=== PATIENT | male | born 1945 | race Caucasian/White ===

== ENCOUNTER 2017-08-14 14:26 | Outpatient (CLI) | payer MEDICARE, BC ==
--- NOTE | 2017-08-14 17:27 | RAD ---
FOUR VIEWS LUMBAR SPINE: History: Lumbar radiculopathy. Right lower back pain. Comparison: None. FINDINGS: Four views lumbar spine. There are five lumbar type vertebral bodies. Vertebral body height is maintained. No evidence of a l umbar spine fracture. There is diffuse bone demineralization. In the neutral position, no significan t spondylolisthesis. Laminectomy defect at L4 is noted. Atherosclerosis of the aorta and iliac arter ies is identified. IMPRESSION: Degenerative changes without significant spondylolisthesis. POS: KELLY
--- NOTE | 2017-08-14 20:30 | MRI ---
MRI LUMBAR SPINE WITH AND WITHOUT CONTRAST: DATE: 08-14-17 HISTORY: 72-year-old male with chronic low back pain and right lumbar radiculopathy. M54.16 COMPARISON: 06-17-16 TECHNIQUE: Multiple sequences obtained in axial and sagittal planes, pre and post IV injection of gadolinium-ba sed contrast agent: 20 ml of MultiHance FINDINGS: There is an approximately 1.5 cm cyst at the right renal posterior upper pole parenchyma, unchanged. Vertebral body heights are maintained. Alignment is normal. Large hemangioma of bone occupying T12 vertebral body, and a moderate sized one at the left side of L4 vertebral body. A large region of ir regularly-shaped, heterogeneously T2 hypointense and mildly T1 hypointense marrow signal abnormality throughout much of L1 vertebral body, unchanged. No severe disc space narrowing at any level. No ma nery spondylolisthesis. T12-L1: No significant additional findings. L1-2: Conus medullaris terminates at mid to lower L1 level. No central stenosis and no high grade ne ural foraminal stenosis. L2-3: No central stenosis and no high grade neural foraminal stenosis. L3-4: Diffuse disc bulge. Moderate degenerative facet hypertrophy and moderate ligamentum flavum thi ckening. Mild to moderate central canal stenosis. Moderate thecal sac stenosis. Moderate right neura l foraminal stenosis. Moderate to severe left neural foraminal stenosis. No interval change. L4-5: New midline decompressive laminectomy at this level with resection of bilaterally previously t hickened ligamentum flavum, and interval removal of the previously demonstrated moderately large rig ht synovial cyst within the spinal canal. Spinal canal and thecal sac caliber are normal currently. Bilaterally moderate to severe degenerative facet changes. A new finding of bilateral facet joint ef fusions. Severe bilateral neural foraminal stenosis. There is mild bone marrow edema involving the b ilateral facet complexes, and in the adjacent bilateral L5 pedicles. Enhancing post-surgical scar ti ssue involving approximately 270 degrees of the extradural space surrounding the thecal sac (posteri or and lateral). Enhancing scar tissue at the laminectomy defect and posterior to it in the posterio r perivertebral space. L5-S1: Bilaterally moderate degenerative facet changes. Mild to moderate right neural foraminal sten osis. Moderate left neural foraminal stenosis. No central stenosis. No interval change. IMPRESSION: 1. Since the previous MRI of 06-17-16, there has been interval midline decompressive laminectomy at L 4-5, with interval resection of the moderately large synovial cyst in the spinal canal arising from the right facet complex, and interval relief of the previously demonstrated severe thecal sac stenos is. 2. Severe bilateral neural foraminal stenosis at L4-5 remains. 3. New bilateral L4-5 facet joint effusions and marrow edema of posterior elements at that leve, pre sumably due to biomechanical stress. 4. Moderate central spinal canal stenosis at L3-4 is unchanged, with bilateral neural foraminal sten osis. ARI Mercado POS: KELLY
== END 2017-08-14 14:27 | disposition home or self-care (01) ==
LOC: TBSIIMAG 14:26
PROVIDERS: ATTEND Surgery
DX: M47.26 Other spondylosis with radiculopathy, lumbar region (principal)
CPT/HCPCS: 72120; 72158

== ENCOUNTER 2019-02-11 06:01 | Day surgery (SDC) | payer MEDICARE, BC ==
[2019-02-06 09:45] VITALS: BMI 31.6
[2019-02-06 10:53] LABS: Anion Gap 13 mmol/L (10-20); BUN (Urea Nitrogen) 27 mg/dL (8.4-25.7); Calc. Creatinine Clearance 76 mL/min (70-130); Calcium 9.6 mg/dL (7.8-10.44); Carbon Dioxide 23 mmol/L (23-31); Chloride 109 mmol/L (98-107); Estimated GFR-MDRD 54; Glucose 99 mg/dL (83-110); Potassium 4.9 mmol/L (3.5-5.1); Sodium 140 mmol/L (136-145)
[2019-02-11] MEDS ORDERED: Nitroglycerin 100MG/250ML BOT 250 ML ONE (07:19)
[2019-02-11] MEDS ORDERED: Heparin 10,000 UNITS/1 ML VIAL ONE (07:19)
[2019-02-11] MEDS ORDERED: Midazolam HCl 2 mg/2 ml Vial ONE (08:19)
[2019-02-11] MEDS ORDERED: Iopamidol 370 76% 100 ML VIAL ONE (12:01)
--- NOTE | 2019-02-11 15:50 | DIS ---
DATE OF ADMISSION: 02/11/2019 DATE OF DISCHARGE: 02/11/2019 INDICATION FOR PROCEDURE: A 73-year-old patient with history of coronary artery disease status post bypass surgery, who underwent a cardiac catheterization previously done on 01/31/2019 and at that time, he had cardiac catheterization and visualization of the poarch coronary arteries and the bypass grafts. He was found to have severe ostial stenosis of the left circumflex. The remaining saphenous vein grafts appeared to be patent. There was no saphenous vein graft previously to the left circumflex. He was advised to undergo angioplasty and probable stent placement to the ostium of the left circumflex extending back into the left main. The left anterior descending artery was completely occluded in the very proximal area. ADMITTING DIAGNOSES: Coronary artery disease, hypertension, dyslipidemia, peripheral vascular disease, gastroesophageal reflux disease, prostate cancer which has been treated. DISCHARGE DIAGNOSES: Coronary artery disease, hypertension, dyslipidemia, peripheral vascular disease, gastroesophageal reflux disease, prostate cancer which has been treated. PROCEDURE IN HOSPITAL: He was taken to the cardiac cath laboratory, where he underwent the procedure today. He was implanted with 2.5 x 12 mm synergy stent and also 2.5 x 8 mm synergy stent overlapping the original stent more distally. He tolerated the procedure well. At the beginning of the procedure, the ostium was about 90% occluded and more distally is likely 60% stenosis. After the first stent was placed, it appeared to be more significantly stenosed and the second stent was placed. At the end of the procedure, there was no residual stenosis. He tolerated the procedure well. As noted above. His followup will be with me in 2 to 4 weeks in the office. DISCHARGE MEDICATIONS: Same as his home medications or prior medications except he will be started on Brilinta 90 mg b.i.d. His other medications include: 1. Atorvastatin 80 mg a day. 2. Tramadol 50 mg tablets as needed. 3. Melatonin 10 mg q.p.m. 4. Nexium 40 mg daily. 5. Fiber powder 500 mg daily. 6. Potassium gluconate ER 595 mg tablets once a day. 7. Aspirin 81 mg a day. 8. Tylenol Extra Strength 500 mg p.r.n. as needed. 9. Lisinopril 5 mg daily. 10. Gabapentin 300 mg t.i.d. 11. Metoprolol 25 mg b.i.d. HOSPITAL COURSE: A very pleasant gentleman, 73-year-old as noted above with severe coronary artery disease, underwent bypass surgery several years ago, was found to have abnormal stress test. He complained of chest pain on exertion, which appeared to be unstable angina. It has become worse. He was advised to undergo a cardiac catheterization, which was done on 01/31 and he was noted to have ostial stenosis of the left circumflex, which was rather considered severe. He did not have a previous bypass on this vessel. He was advised to undergo angioplasty and stent placement. This was arranged for today. He underwent the procedure without difficulties or complications or wound to the right groin. If he has no complications and his vital signs remain stable, he will be discharged to home in the next 6 hours after the sheath has been removed. He tolerated the procedure well and I will see him back in the office. Job ID: [id number] MTDD
[2019-02-11] MEDS ORDERED: traMADol HCl 50 MG TAB ONE (17:37)
== END 2019-02-11 22:50 | disposition home or self-care (01) ==
LOC: CCL 06:01
PROVIDERS: ATTEND Internal Medicine Cardiovascular Disease
PROC: 027034Z Dilation of Coronary Artery, One Artery with Drug-eluting Intraluminal Device, Percutaneous Approach (ICD-10-PCS; principal; 2019-02-11)
PROC: 4A023N7 Measurement of Cardiac Sampling and Pressure, Left Heart, Percutaneous Approach (ICD-10-PCS; 2019-02-11)
PROC: B2111ZZ Fluoroscopy of Multiple Coronary Arteries using Low Osmolar Contrast (ICD-10-PCS; 2019-02-11)
DX: I25.10 Atherosclerotic heart disease of native coronary artery without angina pectoris (principal); I10 Essential (primary) hypertension; E78.5 Hyperlipidemia, unspecified; I73.9 Peripheral vascular disease, unspecified; K21.9 Gastro-esophageal reflux disease without esophagitis; Z85.46 Personal history of malignant neoplasm of prostate; Z79.82 Long term (current) use of aspirin; Z79.899 Other long term (current) drug therapy; Z95.1 Presence of aortocoronary bypass graft
CPT/HCPCS: 80048; 85347; 92928; 99153; C1769; C1874; C1887; C9600; J1642; J1644; J2250; Q9967

== ENCOUNTER 2021-07-19 14:11 | Outpatient (CLI) | payer MEDICARE ==
[~2021-07-19 14:11] MED LIST: Iopamidol 370 76% 100 ML VIAL ONE
== END 2021-07-19 14:12 | disposition home or self-care (01) ==
LOC: BICCT 14:11
PROVIDERS: ATTEND Internal Medicine Cardiovascular Disease
DX: I65.22 Occlusion and stenosis of left carotid artery (principal); I65.02 Occlusion and stenosis of left vertebral artery
CPT/HCPCS: 70498; 82565

== ENCOUNTER 2021-08-06 10:00 | Inpatient (IN) | payer MEDICARE ==
[2021-08-09 13:19] VITALS: BMI 32.5
[2021-08-10] MEDS ORDERED: Heparin 5,000 UNITS/ML VIAL ONE (06:25)
[2021-08-10] MEDS ORDERED: Protamine Sulfate 50 MG/5 ML VIAL ONE (06:25)
[2021-08-10] MEDS ORDERED: EPINEPHrine 1 MG/ML AMP ONE (06:45)
[2021-08-10] MEDS ORDERED: Bupivacaine PF 0.5% 30 ML VIAL ONE (06:45)
[2021-08-10] MEDS ORDERED: Dexamethasone 4 mg/ml Vial ONE (06:45)
[2021-08-10] MEDS ORDERED: Midazolam HCl 2 mg/2 ml Vial ONE (06:46)
[2021-08-10] MEDS ORDERED: Fentanyl 100 MCG/2 ML VIAL ONE (06:46)
[2021-08-10] MEDS ORDERED: ceFAZolin 2 GM/DEX 5% 100 ML BAG ONE (07:00)
[2021-08-10] MEDS ORDERED: Dexamethasone 20 MG/5 ML VIAL ONE (07:27)
[2021-08-10] MEDS ORDERED: Ondansetron PF 4 MG/2 ML Vial ONE (07:27)
[2021-08-10] MEDS ORDERED: PROPOFOL 200 MG/20 ML VIAL ONE (07:27)
[2021-08-10] MEDS ORDERED: PHENYLEPHRINE-NS 100 MCG/ML 10 ML SYRINGE ONE (07:27)
[2021-08-10] MEDS ORDERED: Glycopyrrolate 0.2 MG/ML 5 ML SYRINGE ONE (07:27)
[2021-08-10] MEDS ORDERED: Rocuronium Bromide 10 MG/ML (10ML VIAL) ONE (07:27)
[2021-08-10] MEDS ORDERED: hydrALAZINE 20 MG/ML VIAL SLOW IVP PRN (08:47)
[2021-08-10] MEDS ORDERED: Fentanyl 100 MCG/2 ML VIAL SLOW IVP PRN (08:47)
[2021-08-10] MEDS ORDERED: traMADol HCl 50 MG TAB PO PRN (08:47)
[2021-08-10] MEDS ORDERED: Acetaminophen 325 MG TAB PO PRN (08:47)
[2021-08-10] MEDS ORDERED: Ondansetron PF 4 MG/2 ML Vial IVP PRN (08:47)
[2021-08-10] MEDS ORDERED: Phenylephrine 40 MG in Sodium Chloride 0.9% 250 ML 250 ML IVPB PRN (08:47)
[2021-08-10] MEDS ORDERED: Nitroglycerin 50 MG/250 ML BOT 250 ML IVPB PRN (08:47)
[2021-08-10] MEDS ORDERED: Melatonin 3 MG TAB PO PRN (09:03)
[2021-08-10] MEDS ORDERED: ePHEDrine Sulfate 50 MG/10 ML VIAL ONE (09:31)
[2021-08-10] MEDS ORDERED: Non-Formulary Medication 1 EACH PO PRN (09:37)
[2021-08-10] MEDS ORDERED: Ondansetron HCl/PF 4 MG/2 ML Vial IVP PRN (09:45)
[2021-08-10] MEDS ORDERED: ePHEDrine Sulfate 50 MG/10 ML VIAL SLOW IVP SCH (09:45)
[2021-08-10] MEDS ORDERED: Promethazine HCl 25 MG/ML VIAL IM/IV PRN (09:45)
[2021-08-10] MEDS ORDERED: Acetaminophen 325 MG TAB ONE ×2 (09:57)
[2021-08-10] MEDS: Sodium Chloride 0.9% 1,000 ML IV SCH ×2 (10:00→16:57)
[2021-08-10] MEDS: Metoprolol Tartrate 25 MG TAB PO SCH ×2 (13:14→23:43)
[2021-08-10] MEDS: Gabapentin 300 MG CAP PO SCH ×3 (13:14→20:27)
[2021-08-10] MEDS ORDERED: FLU VACC QS2021-22(65YR UP)/PF 240 MCG/0.7 ML SYRINGE IM ONE (15:00)
[2021-08-10] MEDS: ceFAZolin Sodium/D5W 2 GM in Premix Bag 1 BAG IVPB SCH ×2 (16:57→23:42)
[2021-08-11 06:08] VITALS: TEMP 98.2
[2021-08-11] MEDS: Gabapentin 300 MG CAP PO SCH (07:23)
[2021-08-11 07:24] VITALS: BP 129/101
[2021-08-11] MEDS: Metoprolol Tartrate 25 MG TAB PO SCH (07:24)
[2021-08-11] MEDS: Sodium Chloride 0.9% 1,000 ML IV SCH (07:25)
[2021-08-11] MEDS: ceFAZolin Sodium/D5W 2 GM in Premix Bag 1 BAG IVPB SCH (07:39)
[2021-08-11] MEDS ORDERED: Aspirin 81 mg Enteric Coated Tablet PO SCH (09:00)
[2021-08-11] MEDS ORDERED: Clopidogrel Bisulfate 75 MG TAB PO SCH (09:00)
[2021-08-11] MEDS ORDERED: Atorvastatin Calcium 40 MG TAB PO SCH (09:00)
[2021-08-11] MEDS ORDERED: Potassium Chloride 8 MEQ TAB PO SCH (09:00)
[2021-08-11] MEDS ORDERED: Ezetimibe 10 MG TAB PO SCH (09:00)
[2021-08-11] MEDS ORDERED: Lisinopril 20 MG TAB PO SCH (09:00)
[2021-08-11] MEDS ORDERED: Amlodipine 5 MG TAB PO SCH (09:00)
== END 2021-08-11 10:26 | disposition home or self-care (01) | DRG 36 ==
LOC: SURG A 08-10 06:10 → EDSTATUS 08-10 10:00 → IMCU/EMU 08-10 12:35
PROVIDERS: ADMIT Thoracic Surgery (Cardiothoracic Vascular Surgery); ATTEND Thoracic Surgery (Cardiothoracic Vascular Surgery)
PROC: 037L3DZ Dilation of Left Internal Carotid Artery with Intraluminal Device, Percutaneous Approach (ICD-10-PCS; principal; 2021-08-10)
PROC: B347ZZ3 Ultrasonography of Left Internal Carotid Artery, Intravascular (ICD-10-PCS; 2021-08-10)
DX: I65.22 Occlusion and stenosis of left carotid artery (principal); I10 Essential (primary) hypertension; E78.5 Hyperlipidemia, unspecified; I25.10 Atherosclerotic heart disease of native coronary artery without angina pectoris; M19.90 Unspecified osteoarthritis, unspecified site; I25.2 Old myocardial infarction; Z95.1 Presence of aortocoronary bypass graft; Z95.5 Presence of coronary angioplasty implant and graft; Z85.46 Personal history of malignant neoplasm of prostate; Z90.79 Acquired absence of other genital organ(s); Z68.32 Body mass index [BMI] 32.0-32.9, adult; Z79.899 Other long term (current) drug therapy; Z79.82 Long term (current) use of aspirin; Z79.02 Long term (current) use of antithrombotics/antiplatelets
CPT/HCPCS: 76000; 94640; C1725; C1876; C1884; J0171; J1100; J1642; J1644; J2250; J2405; J2704; J2720; J3010; J7050; J7620; S0020

== ENCOUNTER 2021-08-06 10:09 | Outpatient (CLI) | payer MEDICARE ==
[2021-08-06 11:52] LABS: Hemoglobin 14.8 g/dL (13.5-17.5); Mean Corpuscular HGB CONC 33.7 g/dL (32.0-36.0); Mean Corpuscular Hemoglobin 30.9 pg (27.0-33.0); Mean Corpuscular Volume 91.6 fl (81.2-95.1); Mean Platelet Volume 10.2 fl (7.4-10.4); Platelet Count 187 10x3/uL (150-450); RBC Distribution Width 12.7 % (11.5-14.5); Red Blood Cell (RBC) Count 4.79 10x6/uL (4.32-5.72); White Blood Cell (WBC) Count 10.1 10x3/uL (3.5-10.5)
[2021-08-06 12:27] LABS: Anion Gap 13 mmol/L (10-20); BUN (Urea Nitrogen) 27 mg/dL (8.4-25.7); Calc. Creatinine Clearance 0 mL/min (70-130); Calcium 10.2 mg/dL (7.8-10.44); Carbon Dioxide 23 mmol/L (23-31); Chloride 105 mmol/L (98-107); Glucose 105 mg/dL (83-110); Potassium 5.2 mmol/L (3.5-5.1); Sodium 136 mmol/L (136-145)
[2021-08-07 01:38] LABS: SARS-CoV-2 PCR by NAA Not Detected (NotDetected)
== END 2021-08-06 10:10 | disposition home or self-care (01) ==
LOC: LABBT 10:09
PROVIDERS: ATTEND Thoracic Surgery (Cardiothoracic Vascular Surgery)
DX: Z01.812 Encounter for preprocedural laboratory examination (principal); Z20.822 Contact with and (suspected) exposure to COVID-19
CPT/HCPCS: 80048; 85027; U0003; U0005

== ENCOUNTER 2021-09-01 10:32 | Outpatient (CLI) | payer MEDICARE | END 2021-09-01 10:33 | disposition home or self-care (01) | PROVIDERS: ATTEND Student in an Organized Health Care Education/Training Program | DX: I69.891 Dysphagia following other cerebrovascular disease (principal); R13.13 Dysphagia, pharyngeal phase; J69.0 Pneumonitis due to inhalation of food and vomit; R63.30 Feeding difficulties, unspecified | CPT/HCPCS: 74230 ==

== ENCOUNTER 2021-09-21 06:14 | Day surgery (SDC) | payer MEDICARE ==
[2021-09-17 14:58] VITALS: BMI 29.8
[2021-09-21] MEDS ORDERED: EPINEPHrine 1 MG/ML AMP ONE (06:38)
[2021-09-21] MEDS ORDERED: Fentanyl 100 MCG/2 ML VIAL ONE (06:45)
[2021-09-21] MEDS ORDERED: SUGAMMADEX SODIUM 200 MG/2 ML VIAL ONE (06:45)
[2021-09-21] MEDS ORDERED: Famotidine/PF 20 mg/2ml Vial ONE (06:46)
[2021-09-21] MEDS ORDERED: PROPOFOL 40 ML ONE (06:57)
[2021-09-21] MEDS ORDERED: Ondansetron PF 4 MG/2 ML Vial ONE (07:34)
[2021-09-21] MEDS ORDERED: Lidocaine 1% PF 5 ML VIAL ONE (07:34)
[2021-09-21] MEDS ORDERED: PROPOFOL 200 MG/20 ML VIAL ONE (07:34)
[2021-09-21] MEDS ORDERED: Dexamethasone 20 MG/5 ML VIAL ONE (07:34)
[2021-09-21] MEDS ORDERED: Rocuronium Bromide 10 MG/ML (10ML VIAL) ONE (07:34)
[2021-09-21] MEDS ORDERED: Propofol 500 MG/50 ML VIAL ONE (07:46)
== END 2021-09-21 10:31 | disposition home or self-care (01) ==
LOC: SDC 06:14
PROVIDERS: ATTEND Student in an Organized Health Care Education/Training Program
PROC: 3E0F8GC Introduction of Other Therapeutic Substance into Respiratory Tract, Via Natural or Artificial Opening Endoscopic (ICD-10-PCS; principal; 2021-09-21)
DX: J38.01 Paralysis of vocal cords and larynx, unilateral (principal); R13.10 Dysphagia, unspecified; I10 Essential (primary) hypertension; E78.5 Hyperlipidemia, unspecified; I25.10 Atherosclerotic heart disease of native coronary artery without angina pectoris; I25.2 Old myocardial infarction; I73.9 Peripheral vascular disease, unspecified; G43.909 Migraine, unspecified, not intractable, without status migrainosus; J34.2 Deviated nasal septum; Z79.02 Long term (current) use of antithrombotics/antiplatelets; Z79.82 Long term (current) use of aspirin; Z79.899 Other long term (current) drug therapy; Z95.1 Presence of aortocoronary bypass graft; Z95.2 Presence of prosthetic heart valve; Z95.5 Presence of coronary angioplasty implant and graft; Z95.828 Presence of other vascular implants and grafts
CPT/HCPCS: 31571; 93005; C1776; 93010; J0171; J1100; J2405; J2704; J3010; S0028

== ENCOUNTER 2021-12-07 09:31 | Day surgery (SDC) | payer MEDICARE ==
[2021-12-02 12:11] VITALS: BMI 28.5
[2021-12-07] MEDS ORDERED: Propofol 1,000 MG/100 ML VIAL IV ONE (09:49)
[2021-12-07] MEDS ORDERED: SUGAMMADEX SODIUM 200 MG/2 ML VIAL ONE (09:49)
[2021-12-07] MEDS ORDERED: Fentanyl 250 MCG/5 ML VIAL ONE (09:49)
[2021-12-07 10:31] LABS: #Eosinphils 0.1 thou/uL (0.0-0.7); #Lymphocytes 1.5 thou/uL (1.20-3.40); #Monocytes 0.6 thou/uL (0.11-0.59); #Neutrophils 5.5 thou/uL (1.40-6.50); %Basophils 0.4 % (0.0-1.0); %Eosinophils 1.1 % (0.0-10.0); %Lymphocytes 19.5 % (21.0-51.0); %Monocytes 8.1 % (0.0-10.0); %Neutrophils 70.9 % (42.0-75.0); Hemoglobin 14.7 g/dL (14.0-18.0); Mean Corpuscular Hemoglobin 30.9 pg (27.0-31.0); Mean Corpuscular Volume 93.8 fL (78.0-98.0); Mean Platelet Volume 7.7 fL (7.4-10.4); Platelet Count 179 thou/uL (130-400); Red Blood Cell (RBC) Count 4.77 mill/uL (4.70-6.10); White Blood Cell (WBC) Count 7.8 thou/uL (4.8-10.8)
[2021-12-07] MEDS ORDERED: EPINEPHrine 1 MG/ML AMP ONE (10:40)
[2021-12-07 10:42] LABS: Anion Gap 12 mmol/L (10-20); BUN (Urea Nitrogen) 17 mg/dL (8.4-25.7); Calc. Creatinine Clearance 100 mL/min (70-130); Calcium 9.7 mg/dL (7.8-10.44); Carbon Dioxide 26 mmol/L (23-31); Chloride 105 mmol/L (98-107); Glucose 109 mg/dL (83-110); Potassium 4.6 mmol/L (3.5-5.1); Sodium 138 mmol/L (136-145)
[2021-12-07] MEDS ORDERED: PROPOFOL 200 MG/20 ML VIAL ONE (11:50)
[2021-12-07] MEDS ORDERED: Rocuronium Bromide 10 MG/ML (10ML VIAL) ONE (11:50)
[2021-12-07] MEDS ORDERED: Dexamethasone 20 MG/5 ML VIAL ONE (11:50)
[2021-12-07] MEDS ORDERED: Lidocaine 1% PF 5 ML VIAL ONE (11:50)
[2021-12-07] MEDS ORDERED: Ondansetron PF 4 MG/2 ML Vial ONE (11:50)
== END 2021-12-07 14:30 | disposition home or self-care (01) ==
LOC: SDC 09:31
PROVIDERS: ATTEND Student in an Organized Health Care Education/Training Program
PROC: 3E0F8GC Introduction of Other Therapeutic Substance into Respiratory Tract, Via Natural or Artificial Opening Endoscopic (ICD-10-PCS; principal; 2021-12-07)
DX: J38.01 Paralysis of vocal cords and larynx, unilateral (principal); J34.2 Deviated nasal septum; R13.10 Dysphagia, unspecified; I10 Essential (primary) hypertension; Z85.46 Personal history of malignant neoplasm of prostate; Z79.02 Long term (current) use of antithrombotics/antiplatelets; Z79.82 Long term (current) use of aspirin; Z79.899 Other long term (current) drug therapy; Z95.1 Presence of aortocoronary bypass graft; Z95.2 Presence of prosthetic heart valve
CPT/HCPCS: 31571; 80048; 85025; 93005; C1776; 93010; J0171; J1100; J2405; J2704; J3010

== ENCOUNTER 2022-08-01 11:21 | Outpatient (CLI) | payer MEDICARE ==
[2022-08-01 13:59] LABS: Hemoglobin 14.7 g/dL (13.5-17.5); Mean Corpuscular HGB CONC 34.9 g/dL (32.0-36.0); Mean Corpuscular Hemoglobin 31.5 pg (27.0-33.0); Mean Corpuscular Volume 90.1 fl (81.2-95.1); Mean Platelet Volume 10.6 fl (7.4-10.4); Platelet Count 203 10x3/uL (150-450); RBC Distribution Width 12.6 % (11.5-14.5); Red Blood Cell (RBC) Count 4.67 10x6/uL (4.32-5.72)
[2022-08-01 14:21] LABS: Anion Gap 15 mmol/L (10-20); BUN (Urea Nitrogen) 24 mg/dL (8.4-25.7); Calc. Creatinine Clearance 0 mL/min (70-130); Calcium 9.5 mg/dL (7.8-10.44); Carbon Dioxide 22 mmol/L (23-31); Chloride 106 mmol/L (98-107); Estimated GFR 74; Glucose 100 mg/dL (83-110); Potassium 4.6 mmol/L (3.5-5.1); Sodium 138 mmol/L (136-145)
== END 2022-08-01 11:22 | disposition home or self-care (01) ==
LOC: LABBT 11:21
PROVIDERS: ATTEND Thoracic Surgery (Cardiothoracic Vascular Surgery)
DX: Z01.818 Encounter for other preprocedural examination (principal); Z20.822 Contact with and (suspected) exposure to COVID-19
CPT/HCPCS: 80048; 85027; 87811; 93005; 93010

== ENCOUNTER 2022-08-01 16:30 | Inpatient (IN) | payer MEDICARE ==
[2022-08-02] MEDS ORDERED: Bupivacaine PF 0.5% 30 ML VIAL ONE (06:34)
[2022-08-02] MEDS ORDERED: Protamine Sulfate 50 MG/5 ML VIAL ONE (06:34)
[2022-08-02] MEDS ORDERED: Heparin 5,000 UNITS/ML VIAL ONE (06:34)
[2022-08-02] MEDS ORDERED: Midazolam HCl 2 mg/2 ml Vial ONE (06:52)
[2022-08-02] MEDS ORDERED: Lidocaine 1% MPF 2 ML VIAL ONE (06:52)
[2022-08-02] MEDS ORDERED: CEFAZOLIN 2 GM VIAL ONE (07:12)
[2022-08-02] MEDS ORDERED: Sodium Chloride 0.9% 100 ML ONE (07:13)
[2022-08-02] MEDS ORDERED: niCARdipine 25 MG/10 ML VIAL ONE (07:29)
[2022-08-02] MEDS ORDERED: Phenylephrine 10 MG/ML VIAL ONE (07:29)
[2022-08-02] MEDS ORDERED: fentaNYL Citrate/PF 100 MCG/2 ML SYRINGE ONE (07:29)
[2022-08-02] MEDS ORDERED: PROPOFOL 200 MG/20 ML VIAL ONE (07:35)
[2022-08-02] MEDS ORDERED: ePHEDrine 50 MG/ML VIAL ONE (07:35)
[2022-08-02] MEDS ORDERED: NEOSTIGMINE 3 MG/3 ML SYR 3 MG/3 ML SYRINGE ONE (07:35)
[2022-08-02] MEDS ORDERED: Rocuronium Bromide 10 MG/ML (10ML VIAL) ONE (07:35)
[2022-08-02] MEDS ORDERED: Glycopyrrolate 0.2 MG/ML 5 ML SYRINGE ONE (07:35)
[2022-08-02] MEDS ORDERED: SUGAMMADEX SODIUM 200 MG/2 ML VIAL ONE (08:47)
[2022-08-02] MEDS ORDERED: Nitroglycerin 50 MG/250 ML BOT 250 ML IVPB PRN (09:05)
[2022-08-02] MEDS ORDERED: Acetaminophen 325 MG TAB PO PRN ×2 (09:05)
[2022-08-02] MEDS ORDERED: Promethazine HCl 25 MG/ML VIAL IM PRN ×2 (09:05→09:11)
[2022-08-02] MEDS ORDERED: hydrALAZINE 20 MG/ML VIAL SLOW IVP PRN (09:05)
[2022-08-02] MEDS ORDERED: traMADol HCl 50 MG TAB PO PRN ×2 (09:05)
[2022-08-02] MEDS ORDERED: Phenylephrine 40 MG in Sodium Chloride 0.9% 250 ML 246 ML IVPB PRN (09:05)
[2022-08-02] MEDS ORDERED: Ondansetron PF 4 MG/2 ML Vial IVP PRN (09:05)
[2022-08-02] MEDS ORDERED: Ondansetron HCl/PF 4 MG/2 ML Vial IVP PRN (09:11)
[2022-08-02] MEDS ORDERED: HYDROmorphone 2 MG/ML VIAL SLOW IVP PRN (09:11)
[2022-08-02] MEDS ORDERED: PACU-Morphine 4MG/ML VIAL SLOW IVP PRN (09:11)
[2022-08-02] MEDS ORDERED: Promethazine HCl 25 MG/ML VIAL IVPB PRN (09:11)
[2022-08-02] MEDS ORDERED: Fentanyl 100 MCG/2 ML VIAL ONE (09:32)
[2022-08-02] MEDS ORDERED: ePHEDrine Sulfate 50 MG/10 ML VIAL ONE (09:59)
[2022-08-02] MEDS ORDERED: Gabapentin 300 MG CAP PO SCH (10:00)
[2022-08-02] MEDS ORDERED: MELATONIN 5 MG PO PRN (10:12)
[2022-08-02] MEDS: Sodium Chloride 0.9% 1,000 ML IV SCH ×2 (14:51→21:00)
[2022-08-02] MEDS: CEFAZOLIN 2 GM in Sodium Chloride 0.9% 100 ML IVPB SCH (14:52)
[2022-08-02] MEDS: Fentanyl 100 MCG/2 ML VIAL SLOW IVP PRN ×2 (16:16→22:56)
[2022-08-02 16:52] VITALS: BMI 32.3
[2022-08-02] MEDS ORDERED: Lisinopril 20 MG TAB PO SCH (18:00)
[2022-08-02] MEDS ORDERED: Metoprolol Tartrate 25 MG TAB PO SCH (18:00)
[2022-08-02] MEDS: Gabapentin 300 MG CAP PO SCH (21:23)
[2022-08-03] MEDS: CEFAZOLIN 2 GM in Sodium Chloride 0.9% 100 ML IVPB SCH ×2 (00:31→07:36)
[2022-08-03 05:04] VITALS: TEMP 97.6
[2022-08-03] MEDS: Gabapentin 300 MG CAP PO SCH (07:40)
[2022-08-03] MEDS: Sodium Chloride 0.9% 1,000 ML IV SCH (07:42)
[2022-08-03] MEDS ORDERED: Potassium Chloride 10 MEQ TAB PO SCH (08:00)
[2022-08-03] MEDS ORDERED: Amlodipine 5 MG TAB PO SCH (09:00)
[2022-08-03] MEDS ORDERED: Clopidogrel Bisulfate 75 MG TAB PO SCH (09:00)
[2022-08-03] MEDS ORDERED: Ezetimibe 10 MG TAB PO SCH (09:00)
[2022-08-03] MEDS ORDERED: Aspirin 81 mg Enteric Coated Tablet PO SCH (09:00)
[2022-08-03] MEDS ORDERED: Atorvastatin Calcium 40 MG TAB PO SCH (09:00)
[2022-08-03] MEDS ORDERED: Metoprolol Tartrate 25 MG TAB PO SCH (09:00)
[2022-08-03] MEDS ORDERED: Lisinopril 20 MG TAB PO SCH (09:00)
== END 2022-08-03 10:30 | disposition home or self-care (01) | DRG 36 ==
LOC: SURG A 08-02 06:17 → CCU 08-02 13:45
PROVIDERS: ADMIT Thoracic Surgery (Cardiothoracic Vascular Surgery); ATTEND Thoracic Surgery (Cardiothoracic Vascular Surgery)
PROC: 037H34Z Dilation of Right Common Carotid Artery with Drug-eluting Intraluminal Device, Percutaneous Approach (ICD-10-PCS; principal; 2022-08-02)
DX: I65.21 Occlusion and stenosis of right carotid artery (principal); Z20.822 Contact with and (suspected) exposure to COVID-19; I10 Essential (primary) hypertension; E78.2 Mixed hyperlipidemia; I25.10 Atherosclerotic heart disease of native coronary artery without angina pectoris; I73.9 Peripheral vascular disease, unspecified; K21.9 Gastro-esophageal reflux disease without esophagitis; Z96.642 Presence of left artificial hip joint; Z79.899 Other long term (current) drug therapy; Z79.82 Long term (current) use of aspirin; Z79.02 Long term (current) use of antithrombotics/antiplatelets; Z95.1 Presence of aortocoronary bypass graft; Z95.2 Presence of prosthetic heart valve; Z85.46 Personal history of malignant neoplasm of prostate
CPT/HCPCS: 76000; 90471; 90732; 94640; C1725; C1769; C1876; C1884; G0009; J0690; J1642; J1644; J2250; J2370; J2704; J2720; J3010; J3490; J7050; J7620; S0020